=== PATIENT | female | born 1995 | race Caucasian/White ===

== ENCOUNTER 2019-12-23 23:36 | Emergency (ER) | payer MEDICAID, SELFPAY ==
--- NOTE | 2019-12-23 23:37 | ED.GENADUL_ITS ---
Discharge Plan Disposition Patient Disposition: HOME Condition: Good Discharge Details Chief Complaint: Dizzy/Sync Clinical Impression: Syncope, Back pain Primary Care Provider: Ko Daniels ED Provider: Amish Ortiz Home Meds and New Rx's Prescriptions: Continued Vyvanse 30 mg Capsule 30 mg RF: 0 sumatriptan succinate [Imitrex] 100 mg Tablet PO RF: 0 Ranitidine 150 mg 150 mg PO DAILY RF: 0 Discharge Instructions Instructions: Syncope (ED) Additional Instructions: At this time your work-up has been unremarkable. Currently your clinical symptoms are not consistent with an acute life-threatening abnormality but it is certainly concerning that you did pass out, and I do feel that this requires further evaluation. Please contact the number provided with your discharge instructions to set up your outpatient Holter monitor which will evaluate for any cardiac arrhythmia. Please rest for the next 24 to 48 hours. If you notice any worsening of your symptoms, or any new symptoms such as vomiting, diarrhea, fever, chills, shortness of breath, chest pain, numbness, weakness, or fainting , please return immediately to the emergency department for reevaluation. Please follow up with your primary care provider as soon as possible for reassessment and reevaluation. As always, it was a pleasure participating in your medical care today. Referrals: Ko Daniels [Primary Care Provider] - Medical Decision Making 24-year-old female with no significant past medical history except for previous ectopic with tubal ligation tobacco abuse and who receives Deppe shot presents today for evaluation of syncope and chest pain. Patient states that over the last few days she has had occasional shortness of breath and mild pain in her chest with breathing, particularly with deep breathing, radiates directly to her back paraspinal region bilaterally. She does have a regular chronic cough secondary to her smoking but denies any changes. She denies any hemoptysis. Her symptoms are worsening today, and she had multiple episodes of feeling very lightheaded, she went to [facility] emergency department where she was worked up and evaluated, after negative work-up she was discharged home with concern for potential muscle spasm and pinched nerve. When the patient went home she appropriately did still have her symptoms however there was an acute change, she stated that she was walking around, felt lightheaded and then passed out. She did not recall the event but there were multiple witnesses. She did not hit her head, or have any significant trauma. She came to few seconds later, and came to the ER here for further evaluation. She denies any associated pain in the head neck numbness tingling or weakness in the arms or legs. She denies any history of syncope. She denies any family history of Robert-Danlos syndrome, Marfan syndrome, polycystic kidney disease, PEs aortic dissection or aneurysms. She denies any history of sudden at a young age from any family members. She denies any new medications, IV or illicit drug use, or other complaints. She denies any other modifying factors. She denies any recent long trips surgeries or procedures. Physical exam is unremarkable, lung sounds negative, no calf tenderness. Bedside limited cardiac ultrasound demonstrates no evidence of right heart strain, no bulging of the interventricular septal wall into the left ventricle, no other significant abnormalities. Good contractility, no pericardial effusion. Differential is broad, but does include dehydration, unrelated to musculoskeletal back pain, however with her Depakote shot, gender, symptoms PE is certainly on the differential. Cardiac etiology less likely given the benign work-up at [facility], however we will get the records to evaluate for tests that were done. We will get an EKG, rehydrate monitor closely and reassess. 1:20 AM Laboratory work-up has returned, notably unremarkable. White count normal, hemoglobin normal, electrolytes normal, d-dimer 330/negative, renal function stable. Troponin normal. proBNP normal suggesting no signs of heart strain. EKG shows no evidence of epsilon wave, Brugada syndrome, or [id number]-[id number]-Vbjuf. Symptoms are clinically inconsistent with dissection, radial pulses equal bilaterally, no tearing or ripping sensation in the chest, back pain is notably reproducible. No other concerning red flags. PERC score and Wells score low likelihood especially in conjunction with normal d-dimer. Symptoms inconsistent with significant PE. Suspect to potential etiologies at play, posterior back musculoskeletal strain, and at this time it appears to be an unrelated syncopal episode potentially from dehydration. Patient was rehydrated with a liter of fluids here. After which point on reassessment she is able to get up well without any significant dizziness lightheadedness and certainly no signs of syncope at all. Cardiac monitoring has remained normal here in the ED. Review of work-up from [facility] shows normal TSH, normal laboratory work-up, unremarkable chest x-ray with no mediastinal widening. I did discuss options of a CT scan for further assessment. At this time through notable discussion, weighing the risks and benefits, and a shared decision making process the patient has refused imaging at this time. Patient is of an appropriate age to make decisions. The patient is of sound mind, appears clinically sober, and has capacity to make decisions by my clinical exam. Respecting the patient's wishes we will hold off on imaging. Additionally I did discuss options of prolonged observation versus admission for continued cardiac monitoring and patient is requesting to go home. Patient will be discharged home, we will set up for outpatient Holter monitor placement, recommend close fo llow-up with PCP, good hydration at home, and rest relaxant for the next 24 to 48 hours. Recommended heating pad for the back, as well as continuation of Lidoderm patch. I also had a long discussion with the patient regarding red flags for which she should immediately return for reassessment and she understands. I have extensively reviewed the treatment plan and discharge instructions with the patient. I have addressed all patient concerns at this time. The patient was made aware of what symptoms to monitor for that would warrant a return to the emergency department. Discussed the plan with the patient, they demonstrate verbal understanding and agreement with our assessment and plan at this time. EKG 00: 08 Rate 79, sinus rhythm, no significant ST elevations or depressions. Single i nverted T wave in V1, no evidence of STEMI, no evidence of epsilon wave, Brugada syndrome, Tdkkv-[id number]-Xxore, or other significant abnormality. HPI General Date/Time Provider Initiated Documentation: 12/23/19 23:36 . HPI Narrative: 24-year-old female with no significant past medical history except for previous ectopic with tubal ligation tobacco abuse and who receives Deppe shot presents today for evaluation of syncope and chest pain. Patient states that over the last few days she has had occasional shortness of breath and mild pain in her chest with breathing, particularly with deep breathing, radiates directly to her back paraspinal region bilaterally. She does have a regular chronic cough secondary to her smoking but denies any changes. She denies any hemoptysis. Her symptoms are worsening today, and she had multiple episodes of feeling very lightheaded, she went to [facility] emergency department where she was worked up and evaluated, after negative work-up she was discharged home with concern for potential muscle spasm and pinched nerve. When the patient went home she appropriately did still have her symptoms however there was an acute change, she stated that she was walking around, felt lightheaded and then passed out. She did not recall the event but there were multiple witnesses. She did not hit her head, or have any significant trauma. She came to few seconds later, and came to the ER here for further evaluation. She denies any associated pain in the head neck numbness tingling or weakness in the arms or legs. She denies any history of syncope. She denies any family history of Robert-Danlos syndrome, Marfan syndrome, polycystic kidney disease, PEs aortic dissection or aneurysms. She denies any history of sudden at a young age from any family members. She denies any new medications, IV or illicit drug use, or other complaints. She denies any other modifying factors. She denies any recent long trips surgeries or procedures. Related Data Home Medications Medication Instructions Recorded Confirmed Ranitidine 150 mg PO DAILY 12/24/19 Vyvanse 30 mg 12/24/19 sumatriptan succinate [Imitrex] mg PO 12/24/19 Allergies Allergy/AdvReac Type Severity Reaction Status Date / Time gluten AdvReac Unverified 12/24/19 00:24 Review of Systems All systems reviewed & are unremarkable except as noted in HPI and below PFSH Social History Smoking/Tobacco Use Status: Current every day Tobacco Type: cigarettes Substance use type: does not use Do you feel safe at home: Yes Do you feel safe in your relationship?: Yes Exam Narrative Exam Narrative: 1.Const: Well-nourished, Well-developed, appearing stated age 2.Eyes: PERRL, no conjunctival injection, and symmetrical lids. 3.ENT: Atraumatic external nose and ears. Moist MM. Neck: Symmetric, trachea midline, No thyromegaly. 4.CVS: +S1/S2, No murmurs or gallops. Peripheral pulses 2+ and equal in all extremities. Brisk capillary refill in all extremities. 5.RESP: Unlabored respiratory effort. Clear to auscultation bilaterally. No wheezes rales or rhonchi. Reproducible chest pain in the paraspinal regions and paraspinal rib regions bilaterally. No deformity. No significant crackles, rhonchi, or wheezes. 6.GI: Soft, Nontender/Nondistended, No hepatosplenomegaly. No guarding or rebound. 7.MSK: Normocephalic/Atraumatic, Extremities w/o deformity or ttp No cyanosis or clubbing, Normal movement of all extremities, negative Homans sign, no calf tenderness. No midline cervical spine tenderness 8.Skin: Warm, Dry. No rashes or lesions. 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 Sensation grossly intact, no focal neurologic deficits. 10.Psych: (AAO) x3. Appropriate mood and affect
[2019-12-23 23:43] VITALS: BP 137/76; PULSE 67; RESP 18; TEMP 36; O2SAT 99
[2019-12-24] MEDS: Normal Saline 1,000 ML 1000 ML IV (00:22)
[2019-12-24 00:24] LABS: Abs Immature Grans 0.01 k/cumm (0.0-0.09); Absolute Basophil Count 0.06 k/cumm (0.0-0.2); Absolute Lymphocyte Count 2.68 k/cumm (1.2-3.4); Absolute Monocyte Count 0.58 k/cumm (0.11-0.7); Absolute Neutrophil Count 5.34 k/cumm (1.2-6.7); Basophils % 0.7; Eosinophils % 3.3; HGB 12.4 g/dL (12.0-15.5); Immature Grans % 0.1 %; Lymphocytes % 29.9; Mean Corp. HGB Concentration 33.5 g/dL (32.0-36.0); Mean Corpuscular Hemoglobin 32.2 pg (27.0-33.0); Mean Corpuscular Volume 96.1 fL (80-95); Mean Platelet Volume 10.1 fL (8.0-11.0); Monocytes % 6.5; Neutrophils % 59.5; Platelet Count 277 x1000/uL (130-400); RBC 3.85 m/cumm (4.00-5.20); RBC Distribution Width 11.6 % (11.7-14.6); White Blood Cell Count 8.97 k/cumm (4.4-10.8)
[2019-12-24 00:41] LABS: ALT 28 U/L (14-59); AST 15 U/L (15-37); Albumin 3.6 g/dL (3.4-5.0); Alkaline Phosphatase 48 U/L (46-116); Anion Gap 8.2 mmol/L (3-11); BUN 16 mg/dL (7-18); Bilirubin, Total 0.2 mg/dL (0.2-1.0); CO2 27.8 mmol/L (21.0-32.0); CREATININE 1.03 mg/dL (0.55-1.02); Calcium 8.6 mg/dL (8.5-10.1); Chloride 106 mmol/L (98-107); Glucose 75 mg/dL (74-106); Potassium 3.5 mmol/L (3.5-5.1); Sodium 142 mmol/L (136-145); Troponin I < 0.05 ng/mL (<0.06)
[2019-12-24 00:44] LABS: NT-proBNP 33 pg/mL (<300)
[2019-12-24 01:00] LABS: D-Dimer 330 ng/mlFEU (<500)
[2019-12-24] MEDS: Lidocaine 5% Patch 1 PATCH TP (01:05)
[2019-12-24 01:21] VITALS: BP 110/66; PULSE 79; RESP 28; O2SAT 100
== END 2019-12-24 01:30 | disposition home or self-care (01) ==
PROVIDERS: Emergency Provider Student in an Organized Health Care Education/Training Program; PCP Nurse Practitioner Family
DX: R55 Syncope and collapse (principal); M54.6 Pain in thoracic spine; J41.0 Simple chronic bronchitis; F17.210 Nicotine dependence, cigarettes, uncomplicated
CPT/HCPCS: 36415; 80053; 93005; 96360; 99284; 83880; 84484; 85025; 85379; 93010

== ENCOUNTER 2019-12-27 08:44 | Outpatient (CLI) | payer MEDICAID, SELFPAY | END 2019-12-27 09:04 | PROVIDERS: PCP Nurse Practitioner Family; Visit Provider Emergency Medicine | DX: R07.9 Chest pain, unspecified (principal); R42 Dizziness and giddiness | CPT/HCPCS: 93225 ==

== ENCOUNTER 2019-12-30 08:35 | Outpatient (CLI) | payer MEDICAID, SELFPAY ==
--- NOTE | 2019-12-30 09:40 | W.HOLTRPT ---
Date of service: 12/30/19 Time of Service: 09:40 Holter Monitor Report Holter Monitor Note: There is a 48-hour Holter monitor ordered for indication of dizziness chest pain. ?Patient was in normal sinus rhythm for the majority of the recording. Average heart rate was 103 bpm. ?There were 0 episodes of SVT and no premature atrial contractions. ?There was one episode of NSVT which lasted a total of 4 beats. There were rare (0.1%) single ventricular ectopic beats. ?There were no episodes of atrial fibrillation, no pauses grade 3 seconds no evidence of high degree heart block. ?Patient diary events were associated with normal sinus rhythm, sinus tachycardia and an occasional PVC.
== END 2019-12-30 08:55 ==
PROVIDERS: PCP Nurse Practitioner Family; Visit Provider Emergency Medicine
DX: R42 Dizziness and giddiness (principal); R07.9 Chest pain, unspecified; I47.2 Ventricular tachycardia; I49.3 Ventricular premature depolarization
CPT/HCPCS: 93226